=== PATIENT | female | born 1970 | race Caucasian/White ===

== ENCOUNTER 2016-06-05 01:41 | Emergency (ER) | payer OTHER ==
[2016-06-05 04:23] VITALS: BP 142/69
== END 2016-06-05 04:23 | disposition home or self-care (01) ==
LOC: ED 01:41
DX: H61.21 Impacted cerumen, right ear (principal); H66.91 Otitis media, unspecified, right ear

== ENCOUNTER 2017-08-23 18:19 | Emergency (ER) | payer OTHER ==
[~2017-08-23] VITALS: Ht 157.5 cm; Wt 54.4 kg
[2017-08-23 18:37] VITALS: Ht 157.5 cm; Wt 54.4 kg
[2017-08-23 20:06] VITALS: BP 138/81
== END 2017-08-23 20:06 | disposition home or self-care (01) ==
LOC: ED 18:19
DX: S20.211A Contusion of right front wall of thorax, initial encounter (principal); R03.0 Elevated blood-pressure reading, without diagnosis of hypertension; W22.8XXA Striking against or struck by other objects, initial encounter; Y93.89 Activity, other specified; Y92.89 Other specified places as the place of occurrence of the external cause; Y99.8 Other external cause status
CPT/HCPCS: J1885

== ENCOUNTER 2018-03-24 11:28 | Emergency (ER) | payer OTHER ==
[~2018-03-24] VITALS: Ht 152.4 cm; Wt 58.1 kg
[2018-03-24 11:35] VITALS: BP 138/95; Ht 152.4 cm; Wt 58.1 kg
== END 2018-03-24 12:43 | disposition home or self-care (01) ==
LOC: ED 11:28
DX: B02.9 Zoster without complications (principal)